=== PATIENT | male | born 1980 | race Caucasian/White ===

== ENCOUNTER 2019-12-01 14:22 | Emergency (ER) | payer SELFPAY ==
[~2019-12-01] VITALS: Ht 167.6 cm; Wt 75.0 kg
[~2019-12-01 14:22] MED LIST: CYCL-1 PO; HYDR-4353 PO; HYDR-4383 PO; KETO10TA2 PO; METH500T PO; TRAM50TA2 PO
[2019-12-01] MEDS ORDERED: ketorolac trometh. 30mg/ml inj. IM ONE (16:05)
[2019-12-01] MEDS ORDERED: HYDR-3965 PO (16:33)
[2019-12-01 16:54] VITALS: BP 145/97
== END 2019-12-01 16:56 | disposition home or self-care (01) ==
LOC: ER 14:23
DX: S20.211A Contusion of right front wall of thorax, initial encounter (principal); F17.210 Nicotine dependence, cigarettes, uncomplicated; Z98.890 Other specified postprocedural states; Z88.0 Allergy status to penicillin; Z79.899 Other long term (current) drug therapy; W22.8XXA Striking against or struck by other objects, initial encounter; Y93.89 Activity, other specified; Y92.89 Other specified places as the place of occurrence of the external cause; Y99.8 Other external cause status
CPT/HCPCS: 71101; 96372; 99283; J1885

== ENCOUNTER 2020-01-08 18:04 | Emergency (ER) | payer OTHER ==
[~2020-01-08] VITALS: Ht 167.6 cm; Wt 73.0 kg
[2020-01-08 18:06] VITALS: BP 152/92
--- NOTE | 2020-01-08 18:20 | NUR ---
Pt stated he needed to go tell his that she couldn't come in with him. Pt is no where to be seen in the parking lot at this time.
--- NOTE | 2020-01-08 18:35 | NUR ---
Pt continues to not be in lobby or anywhere in the parking lot.
--- NOTE | 2020-01-08 19:00 | NUR ---
Pt continues to not be in the lobby or in the parking lot.
== END 2020-01-08 19:02 | disposition home or self-care (01) ==
LOC: ER 18:06
DX: R10.9 Unspecified abdominal pain (principal); Z53.21 Procedure and treatment not carried out due to patient leaving prior to being seen by health care provider

== ENCOUNTER 2022-11-10 23:55 | Emergency (ER) | payer MEDICAID, OTHER ==
[~2022-11-10] VITALS: Ht 170.2 cm; Wt 72.7 kg
[2022-11-11 00:21] VITALS: BP 149/88
--- NOTE | 2022-11-11 06:17 | NUR ---
NOT IN LOBBY AT THIS TIME.
== END 2022-11-11 06:56 | disposition left against medical advice (07) ==
LOC: ER 23:56
DX: S81.852A Open bite, left lower leg, initial encounter (principal); M79.605 Pain in left leg; R22.42 Localized swelling, mass and lump, left lower limb; Z53.21 Procedure and treatment not carried out due to patient leaving prior to being seen by health care provider; W57.XXXA Bitten or stung by nonvenomous insect and other nonvenomous arthropods, initial encounter; Y93.89 Activity, other specified; Y92.89 Other specified places as the place of occurrence of the external cause; Y99.8 Other external cause status
CPT/HCPCS: 99281